=== PATIENT | female | born 1975 | race Caucasian/White ===

== ENCOUNTER 2022-08-25 11:36 | Outpatient (REF) | payer OTHER, SELFPAY ==
--- NOTE | 2022-08-25 11:30 | CRLHL7_ITS ---
For Patients: As a result of the Cures Act, medical imaging exams and procedure reports are released immediately into your electronic medical record. You may view this report before your referring provider. If you have questions, please contact your health care provider. BILATERAL SCREENING MAMMOGRAM WITH COMPUTER-AIDED DETECTION AND TOMOSYNTHESIS TECHNIQUE: CC and MLO views were obtained. These mammographic images have been obtained using full-field digital technique. These mammographic images were interpreted with the benefit of computer-aided detection. Breast Tomosynthesis was used in this interpretation. COMPARISON FILM: 09/12/2016, RIGHT 09/19/2016. FINDINGS: There are scattered areas of fibroglandular density IMPRESSION: There is no radiographic evidence for malignancy. ASSESSMENT: BI-RADS Category 1: Negative RECOMMENDATION: Routine screening mammogram in 1 year. A lay language report of this examination will be provided to the patient. Matthew Narvaez M.D. Diagnostic/Musculoskeletal Radiologist [email or web address] Transcribed: 5:04 [email or web address] middleton/Dictated by: Matthew Narvaez MD @ 08/26/2022 11:55:00 AM (Electronically Signed)
--- OUTSIDE RECORDS SUMMARY | 2022-08-25 11:38 | XMS_ITS ---
:1975 Author Care Team Providers Name Role Phone Carlos Gutierrez Seferino Primary Care Provider Unavailable Allergies Code Code System Name Reaction Severity Status Onset Penicillins Rash ? Active ? Medications Name Status Start Date Stop Date ? ? fluconazole 100 mg tablet Completed ? 2021 TAKE ONE TABLET BY MOUTH ONCE WEEKLY FOR 3 MONTHS fluconazole 150 mg tablet Completed ? 2021 TAKE ONE TABLET BY MOUTH NOW, MAY REPEAT IN 3 DAYS glipizide 5 mg tablet Active ? Not availa ble TAKE ONE TABLET BY MOUTH TWICE A DAY lisinopril 10 mg-hydrochlorothiazide 12.5 mg tablet Completed ? 06/19/2022 TAKE ONE TABLET BY MOUTH DAILY lisinopril 5 mg tablet Active ? Not avail able TAKE ONE TABLET BY MOUTH EVERY DAY metformin ER 500 mg tablet,extended release 24 hr Active ? Not available TAKE TWO TABLETS BY MOUTH TWICE A DAY Problems Name Status Onset Date Source ? Type 2 Diabetes Mellitus Active 06/19/2022 ? Hypertensive Disorder Active 06/19/2022 ? Procedures Date Name Performed by ? 06/19/2022 MAMMO, Screening, Bilateral Information not available Notes: x3; cholecystectomy Results Lab Results None recorded. Past Encounters 06/19/2022 Onychomycosis; Type 2 Diabetes Mellitus; Hypertensive Disorder; Adult Health Examination [facility]-: [address] [place] [id number], Ph. Social History Tobacco Smoking Status Never Smoker Vaccine List Notes: COVID x3 Plan of Care Reminders Provider Appointments None recorded. ? ? Lab None recorded. ? ? Referral None recorded. ? ? Procedures None recorded. ? ? Surgeries None recorded. ? ? Imaging None recorded. ? ? Vitals Weight Blood Pressure 148 lbs 176/82 mm[Hg]
--- OUTSIDE RECORDS SUMMARY | 2022-08-25 11:39 | XMS_ITS | Encounter Summary ---
:1975 Author Reason for Visit None recorded. Assessment and Plan 1. Onychomycosis Plan is for oral anti-fungal treatment. Will check LFTs prior. and repeat 3-4 weeks after initiation of treatment. 2. Type 2 diabetes mellitus Due for opth exam-referral placed Due for labs Start ACEI RHM: FOBT, mammogram Renewed medications: metformin 1000mg ER bid Glipizide 5mg bid F/u 4 weeks ? CMP, serum or plasma ? HbA1c (hemoglobin A1c), blood ? microalbumin/creatinine, mass ratio, urine ? lipid panel, serum ? diabetic ophthalmology referral ? metformin ER 500 mg tablet,extended r elease 24 hr ? glipizide 5 mg tablet 3. Hypertensive disorder Start lisinopril 5mg daily; plan to tit rate next visit. ? fecal occult blood, stool ? lisinopril 5 mg tablet 4. Adult health examination ? MAMMO, screening, bilateral Discussion Note: None recorded.Patient educational handouts: No information available. Plan of Care Reminders Provider Appointments Established Patient 30 08/26/2022 [facility] 3:00PM Lab CMP, Serum or Plasma 06/19/2022 ? ? HbA1C (Hemoglobin a1C), 06/19/2022 ? Blood ? Microalbumin/creatinine, 06/19/2022 ? Mass Ratio, Urine ? Lipid Panel, Serum 06/19/2022 ? ? Fecal Occult Blood, Stool 06/19/2022 ? Referral Diabetic Ophthalmology 06/19/2022 ? Referral Procedures None recorded. ? ? Surgeries None recorded. ? ? Imaging MAMMO, Screening, Bilateral 06/19/2022 ? Medications Name Start Date ? ? glipizide 5 mg tablet ? TAKE ONE TABLET BY MOUTH TWICE A DAY lisinopril 5 mg tablet ? TAKE ONE TABLET BY MOUTH EVERY DAY metformin ER 500 mg tablet,extended release 24 hr ? TAKE TWO TABLETS BY MOUTH TWICE A DAY Medications Administered None recorded. Vitals Weight Blood Pressure 148 lbs 176/82 mm[Hg] Results Lab Results None recorded. Allergies Code Code System Name Reaction Severity Onset Penicillins Rash ? ? Problems Name Status Onset Date Source ? Type 2 Diabetes Mellitus Active 06/19/2022 ? Hypertensive Disorder Active 06/19/2022 ? Procedures Date Name Performed by ? 06/19/2022 MAMMO, Screening, Bilateral Information not available Notes: x3; cholecystectomy Vaccine List Notes: COVID x3 Social History Tobacco Smoking Status Never Smoker What is your level of alcohol consumption? None Do you feel safe at home? Y Do you use any illicit or recreational drugs? N Functional Status Unknown. Past Encounters 06/19/2022 Onychomycosis; Type 2 Diabetes Mellitus; Hypertensive Disorder; Adult Health Examination Barbra Jones, [facility]-: [address] [place] [phone], Ph. History of Present Illness Note: <div>Pt is here for LINDA visit. She is without insurance and has not been taking her bp medication d/t side effects. No particular concerns. Is not current being followed for her DM.; previouslyfollowed in [place]. Of note, she is currently receiving dental treatment. Has not had an opth exam for as long as she can recall. </div> Review of Systems None recorded. Physical Exam ? General Adult Exam, Breast E xam Reported By: Patient Constitutional: General Appearance: healthy- appearing, well-nourished, well-developed. Level of Dis tress: NAD. Ambulation: ambulating normally Psychiatric: Insight: good judgement. Men chuck Status: active and alert, normal mood, normal affect. Orienta tion: to time, to place, to person. Memory: recent memory normal , remote memory normal Head: Head: normocephalic, atrauma tic Eyes: Lids and Conjunctivae: non-i njected, no discharge, no pallor. Lens: clear. Sclerae: non-icteric. Vision: peripheral vision grossly intact, acuity grossly intac t ENMT: Ears: no lesions on external ear, EACs clear, TMs clear, TM mobility normal. Hearing: no hearing loss. Nose: no lesions on external nose, nares patent, no septal kayce ation, nasal passages clear, no sinus tenderness, no nasal dischar ge Neck: Neck: supple, trachea midlin e, no masses, FROM. Lymph Nodes: no cervical LAD, no supraclavic ular LAD, no axillary LAD, no inguinal LAD. Thyroid: no enlargement , non-tender, no nodules Lungs: Respiratory effort: no dyspn ea. Auscultation: breath sounds normal, good air movement, CTA excep t as noted, no wheezing, no rales/crackles, no rhonchi Cardiovascular: Apical Impulse: not displace d. Heart Auscultation: RRR, normal S1, normal S2, no murmurs, no ru bs, no gallops. Pulses including femoral / pedal: normal throughout Breast: Breast: normal appearance, n o masses, no abnormal secretions Abdomen: Bowel Sounds: normal. Inspec tion and Palpation: soft, non-distended, no tenderness, no guarding, no rebound tenderness, no masses, no CVA tenderness. Liver: non-tende r, no hepatomegaly. Spleen: non-tender, no splenomegaly. Hernia: non e palpable Neurologic: Sensation: monofilament test intact Skin: Inspection and palpation: no rash, no lesions, no ulcer, no abnormal nevi, no induration, no nodu les, good turgor, no jaundice. Nails: normal Back: Thoracolumbar Appearance: no rmal curvature
== END 2022-08-25 11:37 | disposition home or self-care (01) ==
LOC: MAMMO 11:36
PROVIDERS: PCP Internal Medicine; Visit Provider Nurse Practitioner Family
DX: Z12.31 Encounter for screening mammogram for malignant neoplasm of breast (principal)
CPT/HCPCS: 77063; 77067